=== PATIENT | male | born 1950 | race Caucasian/White ===

== ENCOUNTER 2018-12-23 20:13 | Inpatient (IN) | payer MEDICARE, MEDICAID ==
[~2018-12-23] VITALS: Ht 185.4 cm; Wt 104.8 kg
[2018-12-23] MEDS ORDERED: SODIUM CHLORIDE 0.9% 1000ML BAG (SEPSIS BOLUS) IV ONE (23:15)
[2018-12-23] MEDS ORDERED: LEVOFLOXACIN 750MG PREMIX 150 ML IV ONE (23:15)
[2018-12-23 23:22] LABS: CLARITY URINE CLEAR (CLEAR); COLOR URINE YELLOW (YELLOW); KETONES URINE TRACE (NEGATIVE); LEUKOCYTE ESTERASE URINE NEGATIVE (NEGATIVE); NITRITE URINE NEGATIVE (NEGATIVE); OCCULT BLOOD URINE NEGATIVE (NEGATIVE); PH URINE 5.5 (4.5-8.0); PROTEIN URINE NEGATIVE (NEGATIVE); SPECIFIC GRAVITY URINE 1.025 (1.005-1.030); UROBILINOGEN URINE 0.2 E.U./dL (0.2-1.0)
[2018-12-23 23:53] LABS: BASOPHILS % 0.9 % (0.0-2.0); EOSINOPHILS % 2.3 % (0.0-5.0); HEMATOCRIT. 41.3 % (42.0-52.0); LYMPHOCYTES % 30.5 % (20.0-50.0); MEAN CORPUSCULAR HEMOGLOBIN 30.8 pg (28.0-32.0); MEAN CORPUSCULAR VOLUME 91.2 fL (80.0-94.0); MEAN PLATELET VOLUME 9.5 fl (7.4-10.4); MONOCYTES % 8.1 % (2.0-8.0); NEUTROPHILS % 58.2 % (40.0-76.0); PLATELET 121 x1000/uL (130-400); RED BLOOD CELL COUNT 4.53 mill/uL (4.7-6.1); RED CELL DISTRIBUTION WIDTH 15.4 % (11.6-14.6)
[2018-12-24] LABS: CHLORIDE 109 mEq/L (98-107)
[2018-12-24 00:03] LABS: INR 0.9; PARTIAL THROMBOPLASTIN TIME 28.7 sec (23.4-31.0); PROTHROMBIN TIME 9.7 sec (9.6-11.0)
[2018-12-24] MEDS ORDERED: ASPIRIN 325MG EC TABLET PO ONE (01:30)
[2018-12-24 08:45] VITALS: BP 173/97
[2018-12-24] MEDS ORDERED: LEVOFLOXACIN 250MG PREMIX 50 ML IV SCH (10:15)
[2018-12-24] MEDS ORDERED: RISP2 MT (10:19)
[2018-12-24] MEDS ORDERED: FERR325T6 MT (10:19)
[2018-12-24] MEDS ORDERED: AMI2 PO (10:19)
[2018-12-24] MEDS ORDERED: KEPP500 MT (10:19)
[2018-12-24] MEDS ORDERED: CARB-32 MT (10:19)
[2018-12-24] MEDS: AMLODIPINE 10MG TABLET PO SCH (10:48)
[2018-12-24] MEDS: DOCUSATE SODIUM 250MG CAPSULE PO SCH (10:48)
[2018-12-24 12:00] VITALS: BP 172/101
[2018-12-24] MEDS: IPRATROPIUM/ALBUTEROL 0.5-3(2.5)MG/3ML NEB HHN SCH ×2 (14:25→21:33)
[2018-12-24 14:30] VITALS: BP 172/101
[2018-12-24] MEDS: LISINOPRIL 5MG TABLET PO SCH (15:34)
[2018-12-24 16:00] VITALS: BP 124/82
[2018-12-24 16:43] LABS: CREATINE KINASE MB FRACTION < 1.0 ng/mL (0.5-3.6)
[2018-12-24 20:00] VITALS: BP 186/95
[2018-12-24] MEDS: ACETAMINOPHEN 325MG TABLET PO PRN (21:53)
[2018-12-25] VITALS: BP 149/77
[2018-12-25] MEDS: LEVOFLOXACIN 750MG PREMIX 150 ML IV SCH (00:25)
[2018-12-25] MEDS: IPRATROPIUM/ALBUTEROL 0.5-3(2.5)MG/3ML NEB HHN SCH ×4 (01:30→20:30)
[2018-12-25 04:00] VITALS: BP_SYST 128; BP_SYST 154; BP_DIAS 50; BP_DIAS 75
[2018-12-25 07:34] LABS: BASOPHILS % 0.6 % (0.0-2.0); EOSINOPHILS % 1.7 % (0.0-5.0); HEMATOCRIT. 40.8 % (42.0-52.0); HEMOGLOBIN. 13.7 g/dL (14.0-18.0); LYMPHOCYTES % 23.4 % (20.0-50.0); MEAN CORPUSCULAR HEMOGLOBIN 30.6 pg (28.0-32.0); MEAN CORPUSCULAR VOLUME 91.3 fL (80.0-94.0); MONOCYTES % 8.3 % (2.0-8.0); PLATELET 112 x1000/uL (130-400); RED BLOOD CELL COUNT 4.48 mill/uL (4.7-6.1); RED CELL DISTRIBUTION WIDTH 15.1 % (11.6-14.6)
[2018-12-25 08:00] VITALS: BP 133/83
[2018-12-25 08:15] LABS: CHLORIDE 106 mEq/L (98-107)
[2018-12-25] MEDS: DOCUSATE SODIUM 250MG CAPSULE PO SCH (08:29)
[2018-12-25] MEDS: AMLODIPINE 10MG TABLET PO SCH (08:29)
[2018-12-25] MEDS: LISINOPRIL 5MG TABLET PO SCH (08:30)
[2018-12-25] MEDS: ENOXAPARIN 30MG/0.3ML SYR SUBCUT SCH ×2 (11:24→20:22)
[2018-12-25 12:00] VITALS: BP 134/81
[2018-12-25 16:00] VITALS: BP 154/97
[2018-12-25 20:00] VITALS: BP 140/76
[2018-12-26] VITALS: BP 155/78
[2018-12-26] MEDS: LEVOFLOXACIN 750MG PREMIX 150 ML IV SCH (00:31)
[2018-12-26] MEDS: ACETAMINOPHEN 325MG TABLET PO PRN ×2 (01:26→17:43)
[2018-12-26] MEDS: IPRATROPIUM/ALBUTEROL 0.5-3(2.5)MG/3ML NEB HHN SCH ×4 (02:15→13:25)
[2018-12-26 04:00] VITALS: BP 142/68
[2018-12-26 06:45] LABS: BASOPHILS % 0.6 % (0.0-2.0); HEMATOCRIT. 39.3 % (42.0-52.0); HEMOGLOBIN. 13.2 g/dL (14.0-18.0); LYMPHOCYTES % 23.2 % (20.0-50.0); MEAN CORPUSCULAR HEMOGLOBIN 30.7 pg (28.0-32.0); MEAN CORPUSCULAR VOLUME 91.5 fL (80.0-94.0); MEAN PLATELET VOLUME 9.4 fl (7.4-10.4); MONOCYTES % 8.1 % (2.0-8.0); NEUTROPHILS % 66.1 % (40.0-76.0); PLATELET 109 x1000/uL (130-400)
[2018-12-26 06:56] LABS: CHLORIDE 105 mEq/L (98-107)
[2018-12-26 08:00] VITALS: BP 174/93
[2018-12-26] MEDS: DOCUSATE SODIUM 250MG CAPSULE PO SCH (08:58)
[2018-12-26] MEDS: AMLODIPINE 10MG TABLET PO SCH (08:59)
[2018-12-26] MEDS ORDERED: LISINOPRIL 2.5MG TABLET PO SCH (09:00)
[2018-12-26] MEDS: ENOXAPARIN 30MG/0.3ML SYR SUBCUT SCH (09:00)
[2018-12-26 11:34] VITALS: BP 125/69
[2018-12-26] MEDS ORDERED: LISINOPRIL 20MG TABLET PO SCH (12:45)
[2018-12-26] MEDS ORDERED: LACTULOSE 20G/30ML UDC PO SCH (14:00)
[2018-12-26 16:00] VITALS: BP 154/86
[2018-12-27] MEDS ORDERED: LISINOPRIL 5MG TABLET PO SCH (09:00)
== END 2018-12-26 19:58 | DRG 201 ==
LOC: ER 20:13 → 8WST 12-24 01:49 → EDBEDREQTM 12-24 01:52 → EDBEDREQ 12-24 01:52 → ENRESERV 12-24 07:08
PROVIDERS: ADMIT Internal Medicine; ATTEND Internal Medicine
DX: I49.9 Cardiac arrhythmia, unspecified (principal); J18.9 Pneumonia, unspecified organism; E44.1 Mild protein-calorie malnutrition; G20 Parkinson's disease; I48.0 Paroxysmal atrial fibrillation; E88.09 Other disorders of plasma-protein metabolism, not elsewhere classified; I11.9 Hypertensive heart disease without heart failure; R00.1 Bradycardia, unspecified; R55 Syncope and collapse; F20.9 Schizophrenia, unspecified; J44.0 Chronic obstructive pulmonary disease with (acute) lower respiratory infection; E66.9 Obesity, unspecified; I49.3 Ventricular premature depolarization; Z66 Do not resuscitate; F41.9 Anxiety disorder, unspecified; M17.32 Unilateral post-traumatic osteoarthritis, left knee; F17.200 Nicotine dependence, unspecified, uncomplicated; F32.9 Major depressive disorder, single episode, unspecified; G89.29 Other chronic pain; Z79.899 Other long term (current) drug therapy; Z68.30 Body mass index [BMI] 30.0-30.9, adult
CPT/HCPCS: 36415; 71045; 73562; 74018; 80048; 82553; 83605; 83735; 84153; 84443; 84484; 93005; 93306; 94640; 96365; 99285; 99406; C1893; J1650; J1956; J7030; J7050; J7620; G0103